=== PATIENT | female | born 1995 | race American Indian/Alaskan Native ===

== ENCOUNTER 2017-04-27 09:37 | Emergency (ER) | payer OTHER ==
[~2017-04-27] VITALS: Ht 167.6 cm; Wt 59.0 kg
[~2017-04-27 09:37] MED LIST: CLINDAMYCIN HC300 MG PO; DEPO-PROVE150 MG/1 M IM; ESTRADIOL2 MG PO; NORCO 5-325 TA1 EACH PO; ZOFRAN ODT4 MG PO
[2017-04-27] MEDS ORDERED: CLEOCIN HCL300 MG PO (12:19)
== END 2017-04-27 13:24 | disposition home or self-care (01) ==
LOC: ED 09:37
DX: L03.113 Cellulitis of right upper limb (principal); Z86.14 Personal history of Methicillin resistant Staphylococcus aureus infection; F17.200 Nicotine dependence, unspecified, uncomplicated; Z88.0 Allergy status to penicillin; Z88.1 Allergy status to other antibiotic agents
CPT/HCPCS: 80053; 83605; 84703; 85025; 87040; 96365; 96375; 99283; J1885

== ENCOUNTER 2017-12-13 13:25 | Emergency (ER) | payer OTHER ==
[~2017-12-13] VITALS: Ht 167.6 cm; Wt 59.0 kg
[~2017-12-13 13:25] MED LIST changes: +CLEOCIN HCL300 MG PO
== END 2017-12-13 13:38 | disposition home or self-care (01) ==
LOC: ED 13:25
DX: S40.262A Insect bite (nonvenomous) of left shoulder, initial encounter (principal); W57.XXXA Bitten or stung by nonvenomous insect and other nonvenomous arthropods, initial encounter

== ENCOUNTER 2018-01-28 20:34 | Inpatient (IN) | payer OTHER ==
[~2018-01-28] VITALS: Ht 167.6 cm; Wt 56.2 kg
--- NOTE | 2018-01-28 23:32 | NUR ---
pt admitted from ed to room 125 via stretcher
--- NOTE | 2018-01-29 00:10 | NUR ---
report received from JONATHON Pabon. rt in with pt administering nebulized treatment. call light in reach. Pt speaks full sentances and no needs voiced at this time.
--- NOTE | 2018-01-29 01:27 | NUR ---
PATIENT GOT UP TO THE BATHROOM AND VOIDED 900MLS. PATIENT BACK IN BED NOW AND WANTING TO GET SOMETHING TO HELP HER SLEEP. I WILL PASS THIS ON TO HER NURSE. CALL LIGHT IN REACH.
--- NOTE | 2018-01-29 02:58 | NUR ---
pt resting in bed watching tv states "Is there something you can give me to help me sleep?" pt reports 4/10 upper back pain that she states is chronic for her "it's because of my scoliosis". Pt states she feels pain is keeping her awake. prn 500mg tylenol adminsitered at this time. call light in reach and pt given fresh ice water also within reach.
--- NOTE | 2018-01-29 06:20 | NUR ---
PT UP TO RESTROOM ONLY STAND BY ASSIST. PT SATTING 100% ON 2LPNC SO O2 TITRATED OFF. PT MAINTAINS ROOM AIR O2 SAT OF 97% AND DENIES SOB. LUNG SOUNDS ARE MUCH IMPROVED FROM INTITIAL ASSESSMENT. SOME SCATTERED WHEEZING NOTED ON EXHALATION AND DIMINISHED TO LOWER LEFT LUNG FIELD. CALL LIGHT WITHIN REACH AND PT DENIES HAVING ANY CONCERNS OR REQUESTS.
--- NOTE | 2018-01-29 08:20 | NUR ---
MORNING ASSESSMENT AND MEDICATIONS DUE. THIS RN TO BEDSIDE. RT AT BEDSIDE GIVING BREATING TREATMENT. PT CONTINUES TO REPORT 5/10 PAIN IN HER BACK AND STATES "IT MIGHT HELP IF I GET UP." PT ASSISTED WITH REPOSITIONING. PT ASSISTED WITH ORDERING BREAKFAST. ASSESSMENT DONE. MEDICATIONS GIVEN. BREATHING TREATMENT DONE. PT EDUCATION REGARDING SPUTUM COLLECTION DONE. PT VERBALIZES UNDERSTANDING. BED RAILS UP. CALL LIGHT WITHIN REACH.
--- NOTE | 2018-01-29 08:30 | NUR ---
PATIENT RESTING IN BED, EYES CLOSED. RN IN ROOM. AM CARE SET UP FOR PATIENT. PATIENT CALL LIGHT IN REACH. NO OTHER NEEDS AT THIS TIME.
--- NOTE | 2018-01-29 08:36 | NUR ---
PATIENT SITTING UP IN BED, EATING BREAKFAST. PATIENT STATED HER MOM WAS BRINGING HER CLEAN CLOTHES LATER AND SHE MAY WANT TO SHOWER THEN. CALL LIGHT IN REACH. NO OTHER NEEDS AT THIS TIME.
--- NOTE | 2018-01-29 10:34 | NUR ---
THIS RN TO CHECK ON PT. PT STATES SHE HAS STILL BEEN UNABLE TO COUGH ANYTHING UP. PT VISITING WITH FAMILY. NO REQUESTS OR COMPLAINTS. CALL LIGHT WITHIN REACH. BED RAILS UP. O2 SATURATION REMAINS 96% ON ROOM AIR.
--- NOTE | 2018-01-29 11:37 | NUR ---
FOCUSSED ASSESSMENT DUE. THIS RN TO BEDSIDE. PT FINSIHING WITH RT TX. PT REPORTS BREATHING "BETTER." CONTINUES TO REPORT 5/10 BACK PAIN. FOCUSSED ASSESSMENT DONE. PT EATING LUNCH AND PLAYING ON PHONE. GRANDFATHER AT BEDSIDE.
--- NOTE | 2018-01-29 12:27 | NUR ---
PT STATES SHE IS READY FOR SHOWER. PIV SALINE LOCKED, ALCOHOL CAPS APPLIED. PIV COVERED FOR SHOWER. SUPPLIES PROVIDED FOR PT. PT ASSISTED INTO RESTROOM. PT INDEPENDANT AND STEADY ON FEET. PT ENCOUARGED TO SIT FOR SHOWER. MOTHER HELPING PT. PT DEMONSTRATES USE OF SHOWER CALL LIGHT.
--- NOTE | 2018-01-29 14:23 | NUR ---
PATIENT RESTING IN BED, VISITING WITH FAMILY. RN AND DOCTOR IN ROOM. CALL LIGHT IN REACH. NO OTHER NEEDS AT THIS TIME.
--- NOTE | 2018-01-29 14:33 | NUR ---
PT REPORTS PAIN AT IV SITE. PT YEPS WITH PAIN WHEN PIV IS FLUSHED. PT STATES "I'D RATHER HAVE MORE NEEDLE POKES THEN THIS HURTING IV." PIV FLUSHES WELL. NO REDNESS NOTED. PIV DC'D PER PROTOCOL. NEW PIV ATTEMPTED X1 BY THIS RN. CHARGE NURSE CALLED DUE TO LIMITED PIV SITES. CHARGE NURSE WILL ATTEMPT PIV. RT TO BEDSIDE FOR PRN BREATHING TX. RT TO BEDSIDE. BREATHINGTX GIVEN.
--- NOTE | 2018-01-29 14:59 | NUR ---
PT VERBALIZED THAT SHE USES HEROINE IN HER VEINS, LAST USED TWO DAYS AGO.
--- NOTE | 2018-01-29 16:11 | NUR ---
AFTERNOON ASSESSMENT DUE. THIS RN TO BEDSIDE. PT REPORTS HEADACHE 5/10 THAT IS "TOLERABLE BUT ANNOYING." PT ENCORUAGED TO GET UP TO CHAIR. PT ASSISTED UP TO CHAIR. ASSESSMENT DONE. CONGESTION AND STUFFY NOSE NOTED. TISSUES PROVIDED. PT BLOWING NOSE AND SNEEZING. PIV CHARGED, PIV WAS STARTED WITH ULTRASOUND BY JONATHON TAVAREZ. PT STATES SHE HAS NO ADDITIONAL COMPLAINTS AT THIS TIME. CALL LIGHT WITHIN REACH.
--- NOTE | 2018-01-29 17:02 | NUR ---
PT HERE FOR SOB AND COUGHT. REGULAR DIET, SBA. PT SHOWERED TODAY. NEW PIV PLACED WITH ULTRASOUND. SPUTUM CULTUR TODAY. SMOKING CESATION EDUCATION TODAY. IV ABX. ENCOURAGE AMBULATION TOLERATED. PRN AND SCHEDULED NEBS. PT USING CALL LIGHT APPROPRIATLY.
--- NOTE | 2018-01-29 18:38 | NUR ---
PT NOTICED TO BE UP AND AMBULATING AROUND THE CARPIO. PT REPORTS "A LITTLE" SOB AND DENIES DIZZINESS.
--- NOTE | 2018-01-29 19:22 | NUR ---
PT IS AWAKE IN BED, SHE DENIES NEEDS AT THIS TIME. CALL LIGHT IS WITHIN REACH.
--- NOTE | 2018-01-29 21:02 | NUR ---
IN ROOM TO ASSESS PT AND ADMINISTER MEDICATIONS. SHE DENIES PAIN AT THIS TIME AND STATES SHE DOES NOT FEEL SOB SHE DID EARLIER IN THE DAY. SHE ALSO DENIES ANY LIGHTHEADEDNESS WHILE AMBULATING.
--- NOTE | 2018-01-29 22:33 | NUR ---
PT STATES SHE TAKES EQUATE BRAND OF NIGHT TIME SLEEP AID AND REQUESTED SOME. CALLED DR SAINI AND HE STATES HE WILL PLACE AN ORDER.
--- NOTE | 2018-01-29 23:01 | NUR ---
ADMINISTERED BENADRYL TO HELP PT SLEEP. SHE DENIES FURTHER NEEDS AT THIS TIME.
--- NOTE | 2018-01-30 00:50 | NUR ---
PT IS RESTING WITH EYES CLOSED, RESPIRATIONS ARE EVEN AND NONLABORED. CALL LIGHT IS WITHIN REACH.
--- NOTE | 2018-01-30 03:11 | NUR ---
PT IS RESTING WITH EYES CLOSED, RESPIRATIONS ARE EVEN AND NONLABORED. CALL LIGHT IS WITHIN REACH.
--- NOTE | 2018-01-30 04:08 | NUR ---
PT IS RESTING WITH EYES CLOSED, RESPIRATIONS ARE EVEN AND NONLABORED. CALL LIGHT IS WITHIN REACH.
--- NOTE | 2018-01-30 04:45 | NUR ---
PT REPORTS SOB HAS DECREASED. SHE TOLERATED RA THROUGH THE NIGHT. SPUTUM CULTURE IS PENDING. SHE IS AMBULATING INDEPENDENT IN THE ROOM/ SBA WHILE IV ABX INFUSING. SHE DENIES PAIN AND IS TOLERATING A REGULAR DIET. PT RECEIVES IV AZITHROMYCIN AND CEFTRIAXONE. BENADRYL WAS ADDED LAST NIGHT TO HELP HER SLEEP.
--- NOTE | 2018-01-30 05:42 | NUR ---
PT IS RESTING WITH EYES CLOSED, RESPIRATIONS ARE EVEN AND NONLABORED. CALL LIGHT IS WITHIN REACH.
--- NOTE | 2018-01-30 08:15 | NUR ---
PATIENT IN BED, VISITOR IN ROOM, STILL WORKING ON BREAKFAST. CALL LIGHT IN REACH
--- NOTE | 2018-01-30 08:40 | NUR ---
PATIENT SET UP FOR AM CARE, TEETH BRUSHED AND FACE WASHED. JONATHON DIALLO IN .
--- NOTE | 2018-01-30 08:41 | NUR ---
MORNING ASSESSMENT AND MEDICATION DUE. THIS RN TO BEDSIDE. PT REPORTS 11/30 "MUSCLE ACHES" ESPICIALLY WHEN COUGHING. PT STATES SHE FEELS MUCH BETTER TODAY. PT ENCOURAGED TO CONTINUE AMBULATING MUCH SHE CAN TOLERATE. ASSESSMENT DONE. INSPIRATORY AND EXPIRATORY WHEEZES NOTED THROUGHOUT. MEDICATION GIVEN. PT WATCHING TV. NO REQUESTS OR COMPALINTS AT THIS TIME. FRIEND AT BEDSIDE. BED RAILS UP. CALL LIGHT WITHIN REACH.
--- NOTE | 2018-01-30 10:25 | NUR ---
THIS RN TO ROOM TO CHECK ON PT. PT ENCOURAGED TO AMBULATE. PT UP TO WALK AROUND CARPIO. 1ST LAP DONE WITH THIS RN. PT DENIES SOB AND DIZZINESS. PT STATES "I JUST FEEL LIKE MY LUNGS HAVE OPENED UP." PT CONTINUES WALKING WITH FRIEND.
--- NOTE | 2018-01-30 11:03 | NUR ---
PATIENT UP IN BED, FAMILY IN ROOM. THIS BUSINESS EXECUTIVE EMTIED GARBAGE AND TIDIED ROOM. CALL LIGHT IN REACH
--- NOTE | 2018-01-30 12:31 | NUR ---
FOCUSSED ASSESSMENT DUE. THIS RN TO BEDSIDE. PT REPORTS 3/10 PAIN IN ABDOMEN AND BACK WITH COUGHING. PT STATES SHE WOULD LIKE TO GO HOME. PTS MOTHER EXPRESSES CONCERN STATING SHE IS NOT COMFORTABLE WITH PT GOING HOME AT THIS TIME BECAUSE SHE IS WORRIED PT WILL OVER DO IT AND BECAUSE PT "IS STILL COUGHING." PTS MOTHER WOULD LIKE TO KNOW THE RESULTS OF SPUTUM CULTURE. PT DECLINES NEED FOR BERG MEDICATION AT THIS TIME. PT DENIES SOB. FOCUSSED ASSESSMENT DONE. WHEEZES NOTED. FAMILY AT BEDSIDE. PT FINSHED WITH LUNCH. BED RAILS UP. CALL LIGHT WITHIN REACH.
--- NOTE | 2018-01-30 12:36 | NUR ---
PT DRESSED, LAYING IN BED. LOTS OF FAMILY IN . PT STATED SHE HOPES TO BE DC'D TODAY. SHE IS FEELING MUCH BETTER. EXTENDED A BLESSING,WILL CONTINUE TO FOLLOW NEEDED
--- NOTE | 2018-01-30 13:20 | NUR ---
PATIENT UP IN ROOM, FAMILY IN ROOM. RN YOEL AND PATIENTS MOTHER IN ROOM TO VISIT WITH PATIENT. VITALS AND I/OS CHARTED. CALL LIGHT IN REACH
--- NOTE | 2018-01-30 13:36 | NUR ---
PT AND MOTHER ARGUING ABOUT WEATHER OR NOT PT SHOULD GO HOME. THIS RN TO ROOM TO MEDIATE. PROS AND CONS DISCUSSED WITH PT AND MOTHER. PT AND MOTHER VERBALIZE UNDERSTANDING OF PROS AND CONS. PT STATES THAT SHE UNDERSTANDS RISKS AND BENIFITS OF LEAVING AT THIS TIME AND WOULD LIKE TO GO HOME. MD MADE AWARE. MEDICATION GIVEN ORDERED. PT TALKING ON PHONE. NO ADDITIONAL REQUESTS OR COMPLAINTS AT THIS TIME.
[2018-01-30] MEDS ORDERED: CEFPODOXIME PR200 MG PO (14:13)
[2018-01-30] MEDS ORDERED: COMBIVENT RESPIM4 GM INH (14:14)
[2018-01-30] MEDS ORDERED: PREDNISONE20 MG PO (14:15)
[2018-01-30] MEDS ORDERED: NICORETTE4 M2 BUCCAL (14:15)
--- NOTE | 2018-01-30 14:39 | NUR ---
PT READY FOR DISCHARGE AND ANXIOUS TO LEAVE. FAMILY HAS ARRIVED TO TAKE PT HOME. DISCHARGE INSTRUCTIONS REVIEWED WITH PT. PT VERBALIZES UNDERSTANDING OF INSTRUCTIONS AND STATES HER QUESTIONS HAVE BEEN ANSWERED. PHARMACIST TO BEDSIDE TO REVIEW INFORMATION WITH PT. ABX GIVEN BEFORE DISCHARGE PER MD REQUESTS. PT STATES SHE UNDERSTANDS ALL HER MEDICAITONS. PIV DC'D PER PROTOCOL. GAUZE AND COBAN APPLIED. VITALS TAKEN. PT WHEELED FROM CLINIC BY MALENA.
== END 2018-01-30 14:45 | disposition home or self-care (01) | DRG 193 ==
LOC: ED 20:34 → MS 23:22
PROVIDERS: ADMIT Internal Medicine
DX: J13 Pneumonia due to Streptococcus pneumoniae (principal); J96.01 Acute respiratory failure with hypoxia; F17.210 Nicotine dependence, cigarettes, uncomplicated; F19.11 Other psychoactive substance abuse, in remission; J98.01 Acute bronchospasm; E86.0 Dehydration; Z88.0 Allergy status to penicillin; Z79.3 Long term (current) use of hormonal contraceptives
CPT/HCPCS: 36415; 71046; 80048; 80053; 83735; 84484; 85025; 85379; 94640; 94668; 96361; 96374; 96375; 99285; 99406; J0456; J0696; J1650; J1885; J2930; J3475; J7030; J7050; J7120; J7512

== ENCOUNTER 2018-09-22 15:47 | Inpatient (IN) | payer OTHER ==
[~2018-09-22] VITALS: Ht 167.6 cm; Wt 60.3 kg
[~2018-09-22 15:47] MED LIST changes: +ALBUTEROL SUL HFA 90; +BACTRIM DS TAB1 EACH PO; +CEFPODOXIME PR200 MG PO; +COMBIVENT RESPIM4 GM INH; +DOXYCYCLINE HY100 MG PO; +NICORETTE4 M2 BUCCAL; +PREDNISONE20 MG PO; +SUBOXONE 8 MG-1 EAC1 SL
--- OUTSIDE RECORDS SUMMARY | 2018-09-22 15:50 | XMS ---
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 - 2 Visits in 30 Days CARE PROVIDERS There are no care providers on record at this time. Braulio has no Care Guidelines for this patient. Bernice VISIT COUNT (12 MO.) 4 [facility]. TOTAL 4 NOTE: Visits indicate total known visits. ED/UCC VISIT TRACKING (12 MO.) 09/22/2018 15:47 [facility] [place] TYPE: Emergency COMPLAINT: - RT ARM PAIN 09/22/2018 01:07 [facility] [place] TYPE: Emergency COMPLAINT: - SPIDER BITE, POSS ABSCESS 01/28/2018 20:34 [facility] [place] TYPE: Emergency COMPLAINT: - CHEST PAIN 12/13/2017 13:26 [facility] [place] TYPE: Emergency COMPLAINT: - POSS BUG BITE DIAGNOSES: - Bitten or stung by nonvenomous insect and other nonvenomous arthropods, initial encounter - Insect bite (nonvenomous) of left shoulder, initial encounter INPATIENT VISIT TRACKING (12 MO.) 01/28/2018 23:[address] [facility] [place] TYPE: Medical Surgical COMPLAINT: - BRONCHITIS AND BRONCHOSPASM DIAGNOSES: - Nicotine dependence, cigarettes, uncomplicated - Other psychoactive substance abuse, in remission - Acute bronchospasm - Acute respiratory failure with hypoxia - retirement (current) use of hormonal contraceptives - Dehydration - Pneumonia, unspecified organism - Pneumonia due to Streptococcus pneumoniae - Allergy status to penicillin [email or web address]
--- NOTE | 2018-09-22 20:10 | NUR ---
PT ARRIVED TO FLOOR VIA STRETCHER. PT ABLE TO SCOOT HERSELF TO HOSPITAL BED. PT ADMISSION COMPLETED. PT RATING PAIN TO L ARM 7/10, DESCRIBES A THROBBING PAIN GENERALIZED TO LUE. L ARM WITH GENERALIZED REDNESS AND EDEMA, NON-PITTING. GAUZE PRESENT OVER I&D SIDE WITH MODERATE AMOUNT OF RED DRAINAGE PRESENT. PT REQUESTS PRN FOR PAIN. TO BE ADMINISTERED ORDERED. PT ORIENTED TO ROOM. DENIES FURTHER NEEDS AT THIS TIME. PT DECLINES PERSONAL ITEMS TO BE PLACED AT BEDSIDE. CALL LIGHT INREACH. PT EDCUATED REGARDING CALL LIGHT USE.
--- NOTE | 2018-09-22 22:22 | NUR ---
PT RESTING IN BED WITH EYES CLOSED. WAKES EASILY WHEN WORKERS COMPENSATION COORDINATOR ENTERS THE ROOM. PT RATING PAIN 5/10. STATES THAT ARM CONTINUES TO "THROB". PRN TORADOL ADMINISTERED. BENADRYL ADMINISTERED PER PT REQUEST. TDAP SHOT ADMINISTERED. PT TOLERATED WELL. PT DENIES FURTHER NEEDS. CALL LIGHT IN REACH.
--- NOTE | 2018-09-22 23:29 | NUR ---
PT UTILIZES CALL LIGHT, REQUESTS NEW WARM COMPRESS, PROVIDED. PT RATING PAIN 4/10 TO L ARM. PT DENIES FURTHER NEEDS AT THIS TIME. CALL LIGHT IN REACH.
--- NOTE | 2018-09-23 02:18 | NUR ---
PT RESTING IN BED AWAKE. STATES THAT SHE HAS SLEPT OFF AND ON. PT STATES THAT THROBBING IS RETURNING TO L ARM, RATES PAIN 5/10, REQUESTS PRN PAIN MEDICATINO. PT ASSESSMENT COMPLETE. PT DENIES NAUSEA OR SOB. PT REPORTS OCCASIONAL COUGH. INSPIRATORY WHEEZE NOTED TO ALL LUNG BEJARANO. L ARM CONTINUES TO HAVE GENERALIZED REDNESS PRESENT. L FORARM WITH 1 +PITTING, L HAND WITH NON PITTING EDEMA. I & D SITE COVERED WITH GAUZE, SATURATED WITH MODERATE AMOUNT OF RED DRAINAGE THAT HAS RAN DOWN PT'S ARM AND ONTO CHUX PADS. GAUZE DRESSING CHANGED AT THIS TIME. PACKING REMAINS IN PLACE. PT TOLERATED WELL. INCREASE IN PAIN WITH TOUCH TO L ARM. PT DENIES FURTHER NEEDS AT THIS TIME. CALL LIGHT WITHIN REACH.
--- NOTE | 2018-09-23 06:13 | NUR ---
PT RESTING IN BED AWAKE. PT ASSESSMENT COMPLETE. PT RATES PAIN 4/10, STATES THAT ARM IS BEGINNING TO THROB AGAIN. PRNT ORADOL ADMINISTERED. PT DENIES ANY NAUSEA OR SOB. PT CONTINUES TO HAVE INSPIRATORY WHEEZES TO ALL LUNG BEJARANO. PT REPORTS OCCASIONAL COUGH. L ARM CONTINUES TO HAVE PITTING 1+EDEMA, L HAND WITH NON PITTING EDEMA. DRESSING, GAUZE AND TAPE TO L I & D SITE WITH MODERATE AMOUNT OF SHADOING AT THIS TIME. CMS TO L HAND INTACT. PT AMBULATES TO BATHROOM AND BACK TO BED WITH SBA, TOLERATED WELL. PT DENIES FURTHER NEEDS AT THIS TIME. CALL LIGHT WITHIN [facility].
--- NOTE | 2018-09-23 07:20 | NUR ---
REPORT RECEIVED FROM STAFF ELECTRICAL ENGINEER RN. PT IN BED, LAB IN ROOM. PT REQUESTING APPLE JUICE. NO OTHER NEEDS. CALL LIGHT IN REACH
--- NOTE | 2018-09-23 07:45 | NUR ---
DR WEBSTER NOTIFIED THAT LAB WAS UNABLE TO DRAW LABS. ORDER TO HOLD LABS AT THIS TIME.
--- NOTE | 2018-09-23 08:16 | NUR ---
BLOOD DRAWN FROM 18G IV IN RIGHT UPPER ARM. 5ML BLOOD WAISTED. SENT TO LAB. FLUIDS RESTARTED.
--- NOTE | 2018-09-23 12:59 | NUR ---
DRESSING CHANGE TO LEFT I AND D SITE. PT PREMEDICATED WITH 10/325 MG NORCO. PACKING IN WOUND REMOVED, MODERATE AMOUNT OF WHITE/YELLOW DRAINAGE PRESENT. FOUL ORDER ALSO PRESENT. WOUND CLENSED WITH NORMAL SALINE. PACKING REPLACED IN WOUND. GAUZE AND ABD PLACED OVER TOP, 4.5 INCH GAUZE ROLL WRAPPED AROUND. PT REPORTED SOME PAIN WITH DRESSING CHANGE. PT ABLE TO TOLERATE.
--- NOTE | 2018-09-23 14:44 | NUR ---
PHONE CALL RECEIVED FROM JOB HAND REGARDING THIS PATIENT'S VENOUS ACCESS. EMR IS REVIEWED AND PATIENT IS INTERVIEWED. PATIENT REPORTS A ULTRASOUND GUIDED PIV ON THE MEDIAL ASPECT OF HER RIGHT ARM PRIOR, WHICH IS SAID TO HAVE INFILTRATED. INFECTION IS NOTED TO HER LEFT ARM. IT IS NOTED PATIENT HAS A HISTORY OF IVDA. SITE RITE ULTRASOUND IS USED TO VISUALIZE THE IV IN THE CEPHALIC VEIN AND IT DOES APPEAR IN THE VEIN. NO CLOTS ARE GROSSLY NOTED. LINE IS FLUSHED W/10 ML NS AND PATIENT REPORTS PAIN "AT FIRST" AND STATES IT SUBSIDES. NO BLOOD RETURN IS NOTED FROM THE LINE. PATIENT REPORTS ATTEMPTS WERE MADE FOR ACCESS IN HER FEET. FLAGYL IS STARTED AND AFTER ABOUT 10 MINUTES, THE PATIENT REPORTS PAIN IN HER RIGHT SHOULDER. PUMP IS TURNED OFF AND DR. WEBSTER IS NOTIFIED OF NECESSITY FOR CENTRAL LINE PLACEMENT.
--- NOTE | 2018-09-23 16:00 | NUR ---
ASSISTED DR GREENBERG IN PLACING 3 LUMEN CENTRAL LINE. PT TOLERATED WELL. X RAY IN TO CONFIRM PLACEMENT.
--- NOTE | 2018-09-23 17:44 | NUR ---
PT REPORTING 5/10 PAIN IN RIGHT ARM A TRHROBBING AND TINGLING. CMS IN FINGERS INTACT. 2 TABS OF 10/325 MG NORCO ADMINSITERED. HEATING PACK APPLIED TO LEFT ARM. CALL LIGHT IN REACH. DINNER AT BEDSIDE.
--- NOTE | 2018-09-23 20:56 | NUR ---
PRIMARY NURSE NOTIFIED RE PAIN MED PATIENT REQUESTED. ICE WATER, APPLE JUICE AND HEAT PACK GIVEN.
--- NOTE | 2018-09-23 21:30 | NUR ---
PT ASSESSMENT COMPLETE. PT RATES PAIN 6/10, PRN TORADOL ADMINISTERED. PT DENIES NAUSEA OR SOB. LUNG SOUNDS WITH INSPIRATORY WHEEZE THROUGHOUT. PT REPORTS OCCASION PRODUCTIVE COUGH. L ARM ELEVATED ON PILLOWS. DRESSING C/D/I. REDNESS PRESENT TO L HAND AND ARM. GENERALIZED EDEMA TO L HAND. 1+PITTING EDEMA TO L ARM. PT UP TO BATHROOM INDEPENDENTLY, TOLERATED WELL. PT DENIES FURTHER NEEDS AT THIS TIME. CALL LIGHT IN REACH.
--- NOTE | 2018-09-23 22:35 | NUR ---
PT REQUESTING BENADRYL FOR SLEEP AND PRN NORCO FOR 4/10 PAIN. PT DENIES FURTHER NEEDS AT THIS TIME. CALL LIGHT IN REACH.
--- NOTE | 2018-09-24 00:56 | NUR ---
PT RESTING IN BED WITH EYES CLOSED. RESPIRATIONS EVEN AND UNLABORED. PT APPEARS TO BE SLEEPING, DOES NOT WAKE WHILE GUNITE MIXER IN DOORWAY. CALL LIGHT IN REACH.
--- NOTE | 2018-09-24 02:32 | NUR ---
PT IV PUMP ALARMING. PT RESTING IN BED AWAKE WHEN PIPE WRAPPING MACHINE OPERATOR ENTERS. PT GROGGY. REPORTS THAT PAIN IS WELL CONTROLLED, RATES 3/10. PT DENIES NEEDS THIS TIME. CALL LIGHT IN REACH.
--- NOTE | 2018-09-24 06:33 | NUR ---
PT ASSESSMENT COMPLETE. PT RATING PAIN 6/10, PRN NORCO ADMINISTERED. PT WITH CONTINUING OCCASIONAL COUGH AND INSPIRATORY WHEEZE. PT DENIES SOB. DENIES NAUSEA. REDNESS TO HAND, EDEMA 1+ TO FOREARM AND NON PITTING EDEA TO L HAND CONTINUE. DRESSING D/I. SMALL AMOUNT OF RED/YELLOW DRAINAGE CAN BE SEEN FROM DRESSING EDGE. PT STATES DRESSING ITCHES SOME. EDUCATION PROVIDED REGARDING DAILY DRESSING CHANGE. UNDERSTANDING STATED. BLOOD OBTAINED FROM CENTRAL LINE. HEP LOCKED PORT AFTER BLOOD DRAW. PT TOLERATED WELL. EDUCATION PROVIDED REGARING IV CARE. PT STATES UNDERSTANDING. PT DENIES OTHER NEEDS AT THIS TIME. CALL LIGHT IN REACH.
--- NOTE | 2018-09-24 07:57 | NUR ---
RECIEVED CRITICAL LAB VALUE FOR HEMOGLOBIN OF 9.6 AND HEMOTCRIT OF 19.8 FROM [facility] AT 0752. RESULTS CALLED TO DR WEBSTER AT 0753.
--- NOTE | 2018-09-24 08:30 | NUR ---
PT SITTING UP IN BED. LEFT ARM ELEVATED ON PILLOW WITH HAND RESTING UP IN THE AIR ABOVE LEVEL OF THE HEART. HAND AND FOREARM NOTABLY EDEMATOUS, NON-PITTING. PT REPORTS THAT THE SWELLING IS MUCH IMPROVED. LEFT HAND AND AND FOREARM EVER SO SLIGHTLY PINK AND WARM, AGAIN PT REPORTS IMPROVEMENT. DRESSING TO LEFT FOREARM CDI. CENTRAL LINE RUNNING MAINTENENCE FLUIDS WNL, ALL LUMENS PULL BACK BLOOD, FLUSH EASILY. UNUSED PORTS HEP FLUSHED AND NEW ANTIBACTERIAL ORANGE CAPS APPLIED. PT ALERT AND ORIENTED. REPORTS LEFT ARM PAIN 5/10, PT AGREEABLE TO ADMINISTRATION OF TORADOL. PT INDEPENDENT IN ROOM. EATING BREAKFAST, DENIES NAUSEA. CALL LIGHT WITHIN REACH.
--- NOTE | 2018-09-24 09:17 | NUR ---
LAB REDRAWN FROM CENTRAL LINE TO VERIFY ABNORMAL RESULTS. DR. WEBSTER NOTIFIED OF NEW RESULTS, NO NEW ORDERS AT THIS TIME.
[2018-09-24] MEDS ORDERED: VENTOLIN HFA18 GM INH (09:21)
--- NOTE | 2018-09-24 09:24 | NUR ---
PT NOTED TO HAVE CONSIDERABLE INSPIRATORY WHEEZES WITH OCCASIONAL NON PRODUCTIVE COUGH. GAVE PT I.S., PROVIDED EDUCATION AND ENCOURAGE USE. PT VERBALIZED UNDERSTANDING.
--- NOTE | 2018-09-24 09:45 | NUR ---
SPOKE WITH PATIENT IN ROOM. PATIENT STATES SHE LIVES WITH HER MOM WHO HAS SOME HEALTH ISSUES, ALSO. BUT THAT SHE HAS GRANDPARENTS CLOSE BY AND OTHER FAMILY. SHE DOES NOT DRIVE, BUT HAS TRANSPORTATION THROUGH FAMILY TO APPOINTMENTS. SHE STATES SHE HAS A 3 YEAR-OLD DAUGHTER WHO IS STAYING WITH HER BIOLOGICAL DAD. SHE STATES SHE IS CURRENTLY UNEMPLOYED. WE DISCUSSED DIAGNOSIS, PATIENT IS WELL INFORMED ON THIS AND THAT SHE NEEDS TO STAY UNTIL CULTURES ARE BACK TO MAKE SURE SHE IS ON CORRECT ANTIBIOTICS. SHE STATES, "I AM OK STAYING IF IT MEANS I GET WHAT I NEED". WE DICUSSED HER WISHES ON PLAN, SHE WANTS TO RETURN TO HER HOME AT DISCHARGE. WE DISCUSSED SHE NEEDS TO MAKE SURE SHE UNDERSTANDS ALL NEEDS TO TAKE CARE OF HER HEALTH AFTER DISCHARGE. WE DISCUSSED SHE NEEDS TO UNDERSTAND ALL MEDS, WHY SHE IS TO TAKE THEM AND SIDE EFFECTS. SHE STATES UNDERSTANDING OF THIS. WE DISCUSSED WHAT SUPPORT AND WHO TO CALL AFTER DISCHARGE. PATIENT FEELS ABLE TO ASK QUESTIONS OF STAFF, SHE STATES SHE FEELS SAFE AT HOME AND UNDERSTANDS SHE WILL BE FOLLOWING UP WITH PCP ALSO. NO FURTHER QUESTIONS AT THIS TIME.
--- NOTE | 2018-09-24 11:16 | NUR ---
PT REQUESTED TO SHOWER TODAY, DR. DARIN ÁLVAREZ'Christa. PT STATES SHE WILL CALL WHEN SHE IS READY.
--- NOTE | 2018-09-24 11:37 | OR ---
[facility] [address], [place] [address] Signed DATE OF OPERATION: 09/23/2018 SURGEON: Rina Greenberg MD PREOPERATIVE DIAGNOSES: 1. Lack of peripheral IV access. 2. Left forearm abscess. 3. History of methicillin-resistant Staph aureus. POSTOPERATIVE DIAGNOSES: 1. Lack of peripheral IV access. 2. Left forearm abscess. 3. History of methicillin-resistant Staph aureus. PROCEDURES PERFORMED: 1. Placement of left internal jugular triple-lumen catheter. 2. Physician-directed ultrasound. ESTIMATED BLOOD LOSS: Minimal. INDICATIONS: Cynthia is a 23-year-old young lady, who unfortunately has a history of IV drug abuse. She has also had previous infections involving methicillin-resistant Staph aureus. More recently, she developed an infection on her left forearm and had been initially I and D'd in our emergency room. The p.o. antibiotics were not enough and so she had come back to the emergency room. She has been admitted to the Internal Medicine Service. She has a very difficult peripheral IV access. In fact, we our nurse had used the ultrasound to place an IV. They were going to place a PICC line and they had not had any success. Consequently, I was asked as a general surgeon on-call to come and place a central venous catheter for Cynthia at least for a day or two until she can get ahead of the infection until the final cultures come back. I met with Cynthia in her room and I talked with her nurse present. We discussed the nature of a central venous catheter. She understands there is risk including, but not limited to bleeding, infection, scarring, change in contour of the skin, pneumothorax requiring chest tube placement, as well as catheter embolization requiring retrieval. She had expressed understanding and wished to proceed. PROCEDURE NOTE: Cynthia was placed in the supine Trendelenburg position on her bed. Her entire neck and Electronically Signed By: RINA GREENBERG MD 09/24/18 3038 PATIENT NAME: CYNTHIA WRIGHT OPERATIVE REPORT DATE OF : [birth year] REPORT #: [id number] PHYSICIAN: RNIA GREENBERG MD PCP: JUAN DUARTE REPORT IS CONFIDENTIAL AND NOT TO BE RELEASED WITHOUT AUTHORIZATION [facility] [address], [place] [address] Signed left chest wall were prepped and draped in the usual sterile fashion. We approached the subclavian vein first. Local anesthetic was injected in the skin underneath the clavicle. We passed our needle in twice and we were not able to locate the vein. We hit the artery once or held pressure for a little over 5 minutes. In the meantime, we retrieved our ultrasound unit from our operating room and we brought that in to [facility]'s hospital room. We then used our ultrasound unit to find the internal jugular vein on the left. Local anesthetic was injected into her neck and we were able to pass the needle under direct visualization into the internal jugular vein on the 1st pass. The wire was able to feed without any resistance whatsoever. We dilated track without any resistance whatsoever. The catheter was inserted up to 15 cm at the neck and all three ports were able to draw and flush quite readily. After this, the catheter was held in place on the neck with interrupted silk sutures. Dry plastic occlusive dressing was applied. Cynthia tolerated the procedure quite nicely. Our chest x-ray was completed and to my read, it is in good position with no complications including pneumothorax. MD BRIJESH Kemp/MODL /[id number] cc: Rina Greenberg MD [facility] Copies: RINA GREENBERG MD ~ Electronically Signed By: RINA GREENBERG MD 09/24/18 1137 PATIENT NAME: CYNTHIA WRIGHT OPERATIVE REPORT DATE OF : [birth year] REPORT #: [id number] PHYSICIAN: RINA GREENBERG MD PCP: JUAN DUARTE REPORT IS CONFIDENTIAL AND NOT TO BE RELEASED WITHOUT AUTHORIZATION
--- NOTE | 2018-09-24 12:00 | NUR ---
PT REPORTS 5/10 LEFT ARM PAIN IN ADDITION TO INCREASE IN "THROBBING". MEDICATED WITH PRN NORCO. DENIES FURTHER NEEDS OR CONCERNS. INDEPENDENT IN ROOM. CALL LIGHT WITHIN REACH.
[2018-09-24] MEDS ORDERED: PREDNISONE20 MG PO (13:57)
--- NOTE | 2018-09-24 14:42 | NUR ---
PT RESTING IN BED, HOT PACK ON L ARM AND ELEVATED ON PILLOW. PT SEEMS PLEASANT AND FELT CONDITION IMPROVING, HOWEVER HER HAND WAS STILL SWOLLEN. EXTENDED BLESSING, ENCOURGED PT TO KEEP ARM ELEVATED. WILL FOLLOW NEEDED
--- NOTE | 2018-09-24 14:44 | NUR ---
PATIENT IN BED WATCHING TV. FRESH WATER GIVEN. CALL LIGHT IN REACH. NO FURTHER NEEDS AT THIS TIME.
--- NOTE | 2018-09-24 14:59 | NUR ---
PT RESTING IN BED, EYES CLOSED, RESP EVEN AND UNLABORED. CALL LIGHT WITHIN REACH.
--- NOTE | 2018-09-24 17:17 | NUR ---
PT PREMEDICATED WITH PRN NORCO, 2 TABS GIVEN. LEFT ARM DRESSING CHANGE COMPLETED. COPIUS AMOUNT OF PURULENT DRAINAGE NOTED ON OLD DRESSING AND OOZING FROM SITE ONCE PACKING REMOVED. MORE DRAINAGE GENTLY EXPRESSED FROM SITE. RINSED WITH STERILE SALINE. WOUND REPACKED WITH IODOFORM GAUZE, COVERED WITH 4X4 GAUZE, ABD PAD, KERLEX WRAP AND COBAN. PT VERY PAINFUL AND TEARFUL DURING PROCEDURE. DR. WEBSTER OBSERVED WOUND PRIOR TO NEW DRESSING APPLICATION. PT MEDICATED WITH IV TORADOL AFTER PROCEDURE, RATING PAIN 7/10. PT REPORTS THAT LEFT ARM AND WOUND OVERALL LOOK MUCH IMPROVED. ONLY SMALL AMOUNT OF REDNESS, WARMTH, AND INFLAMMATION NOTED. CALL LIGHT WITHIN REACH
--- NOTE | 2018-09-24 18:36 | NUR ---
PATIENT IN BED WATCHING TV. CALL LIGHT IN REACH. NO FURTHER NEEDS AT THIS TIME.
--- NOTE | 2018-09-24 19:15 | NUR ---
BEDSIDE REPORT RECEIVED FROM OFFGOING RN. PT RESTING IN BED. DENIES NEEDS AT THIS TIME.
--- NOTE | 2018-09-24 20:17 | NUR ---
PT ASSESSMENT COMPLETE. PT RATES PAIN 6/10, PRN NORCO ADMINISTERED. PT DENIES ANUSEA OR SOB. PT DEMONSTRATES APPROPRIATE IS USE. INSPIRATORY WHEEZE NOTED TO BILATERAL LOWER LUNG LOBES. PT WITH OCCASIONAL COUGH. L ARM CONTINUES TO HAVE GENERALIZED REDNESS, EDEMA PRESENT TO L HAND; NONPITTING. EDEMA TO L FOREARM 1+ PITTING. DRESSING C/D/I. CMS INTACT. PT REPORTS TINGLING TO L ARM. PT UP TO USE THE BATHROOM INDEPENDENTLY. EDUCATION PROVIDED REGARDING IS USE, POC, WOUND CULTURES. PT STATES UNDERSTANDING. PT DENIES FURTHER NEEDS AT THIS TIME. CALL LIGHT IN REACH.
--- NOTE | 2018-09-25 00:07 | NUR ---
PT RSETING IN BED WITH EYES CLOSED. RESPIRATIONS EVEN AND UNLABORED. PT APPEARS TO BE SLEEPING. PT DOES NOT WAKE WHILE ECOTHERAPIST IN DOORWAY. CALL LIGHT IN REACH.
--- NOTE | 2018-09-25 00:48 | NUR ---
PATIENT ASKED FOR WARM BLANKET X2.
--- NOTE | 2018-09-25 02:59 | NUR ---
PT ASSESSMENT COMPLETE. PT REPORTING PAIN 4/10 TO L FOREARM. PT DENIES NASUEA OR SOB. LUNG SOUNDS WITH RHONCI AND INSPIRATORY WHEEZE THROUGHOUT. RHONCI CLEAR WITH COUGH. PT REPORTS SMALL AMOUNT OF MUCOUS PRODUCTION, STATES THAT IT HAS BEEN GREEN IN COLOR. L FOREARM WITH CONTINUED REDNESS/EDEMA UNCHANGED FROM PREVIOUS ASSESSMENT. DRESSING REMAINS C/D/I. PT REQUESTS NEW WARM COMPRESS, PROVIDED. PT DENIES FURTHER NEEDS CALL LIGHT IN REACH.
--- NOTE | 2018-09-25 08:30 | NUR ---
PT SITTING UP IN BED AWAKE EATING BREAKFAST, LV WELL. DENIES NAUSEA. RATES PAIN 4/10 AT THIS TIME, DENIES NEED FOR PAIN MEDICATION CURRENTLY. LEFT ARM DRESSING CDI. CENTRAL LINE DRESSING CDI, ALL PORTS FLUSH EASILY WITH GOOD BLOOD RETURN. PT INDEPENDENT IN ROOM. CALL LIGHT WITHIN REACH.
--- NOTE | 2018-09-25 12:30 | NUR ---
PT RATING LEFT ARM PAIN 5/10. PT AGREEABLE TO TAKE ONLY 1 TAB OF NORCO. MEDICATED AT THIS TIME. SITTING UP EATING LUNCH VISITING WITH FAMILY. CALL LIGHT WITHIN REACH.
--- NOTE | 2018-09-25 13:19 | NUR ---
PATIENT UP TO SHOWER AND BACK TO BED, INDVashti CROUCHNED. NEW GOWN PROVIDED. CALL LIGHT IN REACH. NO FURTHER NEEDS AT THIS TIME.
--- NOTE | 2018-09-25 14:08 | NUR ---
PT SITTING UP IN BED, LEFT ARM ELEVATED WATCHING TV. PT STATED SHE IS FEELING BETTER, AND EDEMA IN L ARM AND HAND IS REDUCED. PT FEELS SHE IS MORE PREPARED TO BE DC'D TODAY IF IT HAPPENS. SLEPT BETTER LAST NIGHT. EXTENDED A BLESSING, WILL FOLLOW NEEDED
--- NOTE | 2018-09-25 15:04 | NUR ---
PT SITTING UP IN BED WATCHING TV. PT TOOK SHOWER A COUPLE HOURS AGO AND STATES IT MADE HER FEEL MUCH BETTER. LEFT ARM ELEVATED ON PILLOW, EDEMA AND REDNESS CONT TO IMPROVE. PT DENIES NEEDS OR CONCERNS AT THIS TIME. CALL LIGHT WITHIN REACH.
--- NOTE | 2018-09-25 17:25 | NUR ---
PT IN BED SLEEPING SOUNDLY, RESP EVEN AND UNLABORED.
--- NOTE | 2018-09-25 19:35 | NUR ---
DRESSING UNABLE TO BE CHANGED THIS SHIFT. [facility] NIGHTSHIFT NURSE NOTIFIED.
--- NOTE | 2018-09-25 20:43 | NUR ---
PATIENT JUST GIVEN 2 NORCO FOR 6/10 LFA PAIN BEFORE DRESSING CHANGE.
--- NOTE | 2018-09-25 22:05 | NUR ---
JUST CHANGED PATIENT'S LEFT FOREARM DRESSING. PURULENT DRESSING STILL DRAINGING FROM WOUND. NEW IODAFORM PACKING PLACED, 4X4'S PLACED OVER THAT, THEN ABD, THEN KERLIX, AND FINISHED WRAPPING IT WITH COBAN. PATIENT'S PAIN CONTINUES TO BE 5/10 AND TOLERATED THE PROCEDURE BEST COULD BE EXPECTED. 30MG IV TORADOL GIVEN, AND EVENING MEDS HAVE BEEN PASSED. PATIENT HAD AN ORAL TEMP OF 101.5F, BUT AFTER SHE WAS GIVEN NORCO ORAL TEMP IS NOW DROPPING AND IS AT 100.0F ORAL. MD NOT NOTIFIED.PATIENT GOING TO TRY AND GO TO SLEEP , BUT IS WATCHING TV AT THIS TIME.
--- NOTE | 2018-09-25 23:02 | NUR ---
PRIMARY NURSE NOTIFIED RE TEMP.
--- NOTE | 2018-09-25 23:06 | NUR ---
PATIENT STILL RESTING AND WATCHING TV.
--- NOTE | 2018-09-25 23:18 | NUR ---
CALLED TO LET HIM KNOW PATIENT'S INITIAL ORAL TEMP WAS 101.5, BUT AFTER 2 NORCO TEMP DECREASED TO 100.0F AND THAT THIS NURSE WAS MONITORING IT DR. MCCLELLAND VERBALIZED UNDERSTANDING AND NO NEW ORDERS GIVEN.
--- NOTE | 2018-09-26 00:45 | NUR ---
PATIENT IS RESTING ON HER LEFT SIDE AND HER EYES ARE CLOSE WITH RESPIRATIONS OF 16. CALL LIGHT IN REACH.
--- NOTE | 2018-09-26 02:09 | NUR ---
PATIENT'S 2AM VANCO WAS HUNG. PATIENT RESTING QUIETLY OM HER LEFT SIDE, NO S/S OF DISTRESS. EYES ARE CLOSED AND RESPIRATIONS REGULAR AND EVEN AT 16. CALL LIGHT IN REACH.
--- NOTE | 2018-09-26 03:00 | NUR ---
PATIENT WAS SLEEPING QUIETLY ON HER LEFT SIDE UNTIL AFTER, I WENT IN TO HANG THE 2AM IV. PATIENT AGAIN RESTING QUITLY AGAIN.
--- NOTE | 2018-09-26 05:57 | NUR ---
PATIENT HAS HAD FAIRLY GOOD RELIEF FROM NORCO. PAIN HAS NEVER GOTTEN ABOVE 5/10. SHE GOT 2 PO NORCO AT 2041 AND 2 NORCO AT 320. DRESSING TO LFA WAS CHANGED AFTER GIVING NORCO AT 2041 AND PAIN AFTER WORDS WAS STILL 5/10. PATIENT IS PRETTY INDEPENDENT IN THE ROOM. RESTIN QUIETLY RIGHT NOW, EYES CLOSED RESPIRATIONS EVEN AND REGULAR AT A RATE OF 16. IV CONTINUOUS AND WNL.
--- NOTE | 2018-09-26 06:03 | NUR ---
PATIENT HAS BEEN RESTING QUIETLY MOST OF THE EXCEPT FOR HIS FREQUENT EPISODES OF URINARY INCONTINENCE, WHICH AT TIMES HAS NEEDED A COMPLETE BED CHANGE. CURRENTLY PATIENT IS RESING QUIETLY, EYES CLOSED, RESPIRATIONS REGULAR AND EVEN AT 16 AT THIS TIME. LAB HAS ALREADY BEEN IN AND HE HAS REFUSED TO LET LAB DRAW HIS BLOOD TODAY. CHARGE NURSE JOSE IS GOING TO GO IN TO TRY AND TALK HIM INTO GETTING HIS BLOOD DRAWN. PATIENT'S IV FLUSHES WELL. CALL LIGHT IN REACH.
--- NOTE | 2018-09-26 06:17 | NUR ---
PATIENT HAS DENIED PAIN ALL NIGHT,HAS RESTED WITH EYES CLOSED, RESPIRATIONS REGULAR AND EVEN AT 16. USES CALL LIGHT APPROPRIATLY EXCEPT HE DID GET OUT OF BED ONCE AT THE BEGINING OF THE SHIFT AND PULLED OUT HIS IV. JONATHON AMARO PUT IN A NEW 22G AND IT IS WNL. PATIENT DID USE HI CALL LIGHT EVERY TIME HE NEEDED TO GET UP TO THE BATHROOM. RESTING RIGHT NOW,EYES CLOSED, RESPIRATIONS REGULAR AND EVEN.
--- NOTE | 2018-09-26 07:48 | NUR ---
BLOOD DRAWN FOR LAB FROM BROWN PORT ON LEFT IJ. LUMEN FLUSHED AND IVF RESUMED IN THIS PORT.
--- NOTE | 2018-09-26 09:06 | NUR ---
PATIENT IN BED, WARM WASHCLOTH OFFERED. BREAKFAST IN ROOM.
--- NOTE | 2018-09-26 09:31 | NUR ---
MORNING ASSESSMENT DONE. PATIENT UP TO CHAIR FOR BREAKFAST, DENIES PAIN AT THIS TIME. LINENS CHANGED. PLAN TO DO DRESSING CHANGE WHEN WILL BE ABLE TO SEE LEFT ARM WOUND.
--- NOTE | 2018-09-26 09:50 | NUR ---
DR. MCCLELLAND IN TO SEE PATIENT, LEFT ARM WOUND UNDRESSED.
--- NOTE | 2018-09-26 11:08 | NUR ---
LEFT FOREARM WOUND REDRESSED. COPIOUS AMOUNTS OF SEROSANGUIOUS DRAINAGE, STREAKED WITH PURULENT DISCHARGE NOTED AFTER PREVIOUS PACKING REMOVED. SMALL AMOUND OF IODOFORM PLACED IN WOUND, PATIENT DID NOT TOLERATE PROCEDURE WELL DESPITE MEDICATIONS. PACKING COVERED WITH NON-STICK PAD, GUAZE FLUFF, ABD PAD, KERLEX AND LOOSE COBAN. AWAITING WOUND CULTURE/BLOOD CULTURE FINAL RESULTS. PATIENT WILL LIKELY NEED OUTPATIENT DRESSING CHANGES.
--- NOTE | 2018-09-26 14:27 | NUR ---
PATIENT RESTING IN BED, LEFT ARM DRESSING CLEAN AND INTACT. IV VANCO INFUSING, PATIENT DENIES OTHER NEEDS.
--- NOTE | 2018-09-26 16:58 | NUR ---
PATIENT HAS CONTINUED ON VANCO TODAY, IS AD YEVGENIY IN ROOM, PAIN IS 4-5/10 AND IS WELL COVERED WITH P.O. NORCO. PATIENT DENIES NAUSEA, HAS A POOR APPETITE, WHICH SHE REPORTS IS HER USUAL. LEFT ARM REDRESSED, DR. MCCLELLAND VIEWED WOUND. WE ARE AWAITING FINAL WOUND CULTURES/BLOOD CULTURES TOMORROW AND PROBABLE OUTPATIENT DRESSING CHANGE PLANS.
--- NOTE | 2018-09-26 19:39 | NUR ---
PATIENT REPORT JUST GIVEN FOR PAIN BY JONATHON MI. PATIENT WATCHING TV IN BED. DRESSSING TO [facility] CDI.
--- NOTE | 2018-09-27 04:20 | NUR ---
PATIENT JUST RETURNED FROM THE RESTROOM INDEPENDENT. PATIENT HAVING 5/10 LEFT ARM PAIN AND 2 PO NORCO GIVEN. CALL LIGHT IN REACH. DRESSING CDI.
--- NOTE | 2018-09-27 05:25 | NUR ---
NIKOLAY HAS BEEN FDAIRLY INDEPENDENT IN THE ROOM. SHE HAS HAD 2 NORCO AT THE BEGINING OF SHIFT AND JUST A SHORT TIME AGAO AND THAT HAS CONTROLLED HER PAIN. IV IN THE LEFT JUGULAR STILL RUNNING CONTINUOUS AND THE OTHER 2 PORTS HAVE BEEN FLUSHED WITH 20MLS NS AND 5ML HEP FLUSH EACH AND FLUSHED EASILY. PATIENT HAS RESTED WELL MOST OF THE NIGHT, WITH EYES CLOSED RESPIRATIONS REGULAR AND EVEN [id number]. VS HAVE BEEN STABLE. PATIENT HAS KEPT LEFT ARM ELEVATED ON PILLOWS AND DRESSING CDI.
--- NOTE | 2018-09-27 06:07 | NUR ---
LABS DRAWN FROM LEFT JUGULAR CENTRAL LINE BROWN PORT AFTER 5ML WASTE, THEN FLUSHED WITH 20MLS NS AND NEW CLAVE PLACED AND FLUSHED WITH 5ML HEP FLUSH AND HOOKED BACK UP TO CONTINUOUS NS FLUIDS.
--- NOTE | 2018-09-27 07:35 | NUR ---
PATIENT RESTING IN BED. PATIENT'S BREAKFAST ORDERED.
--- NOTE | 2018-09-27 08:26 | NUR ---
THIS RN IN TO GIVE AM MEDICATIONS. PT STATES PAIN IS 4/10 IN HER FOREARM. PRN PAIN MEDICATION ADMINISTERED. IV INFUSING WELL. FRESH WATER PROVIDED. NO OTHER ISSUES AT THIS TIME. WILL CONTINUE TO CLOSELY MONITOR.
--- NOTE | 2018-09-27 08:50 | NUR ---
Report received from Erendira HOLT.
[2018-09-27] MEDS ORDERED: KEFLEX500 MG PO (09:19)
--- NOTE | 2018-09-27 09:48 | NUR ---
PT RESTING IN BED WITH HER LEFT ARM ELEVATED, THE DRESSING IS CDI AND THERE IS A TRACE EDEMA NOTED. THE LEFT WRIST PULSE IS STRONG AND CAP REFILL IS LESS THAN 2 SECONDS. THE PT STATES HER PAIN IS AT A 2 WHICH IS ACCEPTABLE TO HER. HER CALL LIGHT IS WITHIN REACH AND SHE DENIES ANY PROBLEMS AT THIS TIME.
--- NOTE | 2018-09-27 10:39 | NUR ---
Left wrist wound dressing changed as ordered, pt tolerated fair. The incision site noted to have a moderate amount of serious sang drainage. The wound appears healthy with defined edges with no noted redness around the edges. There is some noted wrist and forearm swelling which the pt states that it looks a little less.
--- NOTE | 2018-09-27 10:41 | NUR ---
PATIENT IN BED. RN IN ROOM. VITAL SIGNS AND I&O DONE. CALL LIGHT WITHIN REACH. NO OTHER NEEDS AT THIS TIME
[2018-09-27] MEDS ORDERED: NORCO 10-325 T1 EACH PO (10:53)
--- NOTE | 2018-09-27 11:05 | NUR ---
IJ removed per protocol at 1102. Pt laying flat in bed at this time, there is no signs of bleeding or swelling at the site at this time. Pt instucted to stay flat and to attmept to move her neck very little for 30 minutes which she states understanding. Site appears healthy and the tip was intact.
== END 2018-09-27 12:18 | disposition home or self-care (01) | DRG 603 ==
LOC: MS → ED 15:47 → MS 19:43 → EDSEX 19:43 → MS 19:43 → EDBD 19:43 → MS 09-27 12:18
PROVIDERS: ADMIT Internal Medicine
PROC: 05HY33Z Insertion of Infusion Device into Upper Vein, Percutaneous Approach (ICD-10-PCS; principal; 2018-09-23)
DX: L03.114 Cellulitis of left upper limb (principal); L02.414 Cutaneous abscess of left upper limb; F17.200 Nicotine dependence, unspecified, uncomplicated; J45.909 Unspecified asthma, uncomplicated; F19.11 Other psychoactive substance abuse, in remission; Z86.14 Personal history of Methicillin resistant Staphylococcus aureus infection; Z88.0 Allergy status to penicillin; Z79.891 Long term (current) use of opiate analgesic; Z79.899 Other long term (current) drug therapy
CPT/HCPCS: 36415; 71045; 80048; 80053; 80202; 85025; 85651; 87521; 87522; 90715; 96365; 96375; 99284-25; J1170; J1885; J3370; J7030; Q0163

== ENCOUNTER 2020-05-18 11:13 | Emergency (ER) | payer OTHER ==
[~2020-05-18] VITALS: Ht 167.6 cm; Wt 54.4 kg
[~2020-05-18 11:13] MED LIST changes: +KEFLEX500 MG PO; +NORCO 10-325 T1 EACH PO; +VENTOLIN HFA18 GM INH
--- OUTSIDE RECORDS SUMMARY | 2020-05-18 11:16 | XMS ---
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 Care History Medical/Surgical 09/24/2018 [facility] - PATIENT IS A YELLOWHAWK ELIGIBLE, \T\middot;\T\nbsp; PLEASE REFER PATIENT TO [facility] FOR NON EMERGENT MEDICAL NEEDS. \T\middot;\T\nbsp; [facility] CAN SEE PATIENTS SAME DAY FOR APTS IF PATIENT CALLS FIRST THING IN THE MORNING. E.D. VISIT COUNT (12 MO.) 2 [facility] TOTAL 2 NOTE: Visits indicate total known visits. ED/UCC VISIT TRACKING (12 MO.) 05/18/2020 11:14 [facility] [place] TYPE: Emergency COMPLAINT: - POSSIBLE OD 11/01/2019 07:22 [facility] [place] TYPE: Emergency COMPLAINT: - POSS ABSCESS ON LEFT ARM DIAGNOSES: - Cutaneous abscess of left upper limb - Allergy status to penicillin - Sepsis, unspecified organism - Personal history of nicotine dependence - Other intermodal customer service (current) drug therapy - Cutaneous abscess of left upper limb - Allergy status to other antibiotic agents status INPATIENT VISIT TRACKING (12 MO.) 11/01/2019 17:05 [facility] TYPE: Surgical Services DIAGNOSES: - Severe sepsis with septic shock - ST elevation (STEMI) myocardial infarction involving other co - Sepsis, unspecified organism - septic shock - Cutaneous abscess of limb, unspecified [email or web address]
[2020-05-18] MEDS ORDERED: BUPRENORPHINE HC8 MG SL (11:26)
--- NOTE | 2020-05-19 06:40 | EKG ---
[facility] [address] [place], [place] [address] Signed Normal sinus rhythm with sinus arrhythmia Normal ECG No previous ECGs available Confirmed by HIEN WEBSTER MD ([id number]) on 05/19/2020 6:39:51 AM Electronically Signed By: HIEN WEBSTER MD 05/19/20 0640 PATIENT NAME: CYNTHIA WRIGHT Electrocardiogram DATE OF : [birth year] PHYSICIAN: HIEN WEBSTER MD REPORT #: [id number] REPORT IS CONFIDENTIAL AND NOT TO BE RELEASED WITHOUT AUTHORIZATION
== END 2020-05-18 13:27 | disposition home or self-care (01) ==
LOC: ED 11:13
DX: T40.411A Poisoning by fentanyl or fentanyl analogs, accidental (unintentional), initial encounter (principal); F17.200 Nicotine dependence, unspecified, uncomplicated; Z88.0 Allergy status to penicillin; Z79.899 Other long term (current) drug therapy
CPT/HCPCS: 80053; 80176; 84443; 85025; 93005; 93010; 99284-25; G0480

== ENCOUNTER 2020-11-22 07:36 | Emergency (ER) | payer OTHER ==
[~2020-11-22] VITALS: Ht 167.6 cm; Wt 54.4 kg
[~2020-11-22 07:36] MED LIST changes: +BUPRENORPHINE HC8 MG SL
--- OUTSIDE RECORDS SUMMARY | 2020-11-22 07:42 | XMS ---
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 - Has Care Guidelines CARE PROVIDERS JUAN DUARTE Registered Nurse: [facility] 09/24/2018-[facility] PHONE: [phone] [facility] 11/04/2019-[facility] PHONE: [phone] Braulio has no Care Guidelines for this patient. Care History Medical/Surgical 09/24/2018 [facility] - PATIENT IS A YELLOWHAWK ELIGIBLE, \T\middot;\T\nbsp; PLEASE REFER PATIENT TO [facility] FOR NON EMERGENT MEDICAL NEEDS. \T\middot;\T\nbsp; [facility] CAN SEE PATIENTS SAME DAY FOR APTS IF PATIENT CALLS FIRST THING IN THE MORNING. E.D. VISIT COUNT (12 MO.) 2 [facility] Keen TOTAL 2 NOTE: Visits indicate total known visits. ED/UCC VISIT TRACKING (12 MO.) 11/22/2020 07:37 [facility] TYPE: Emergency COMPLAINT: - SWOLLEN EYE LID 05/18/2020 11:14 [facility] TYPE: Emergency COMPLAINT: - POSSIBLE OD DIAGNOSES: - POISONING BY FENTANYL OR FENTANYL ANALOGS, ACCIDENTAL, INIT - POISONING BY FENTANYL OR FENTANYL ANALOGS, ACCIDEN - Poisoning by heroin, accidental (unintentional), initial encounter - Poisoning by fentanyl or fentanyl analogs, accidental (unintentional), initial encounter - Other terminologist (current) drug therapy - Allergy status to penicillin - Nicotine dependence, unspecified, uncomplicated INPATIENT VISIT TRACKING (12 MO.) No inpatient visits to display in this time frame [email or web address]
[2020-11-22] MEDS ORDERED: METHADONE HCL50 GM PO (07:51)
[2020-11-22] MEDS ORDERED: CEFDINIR300 MG PO (08:05)
[2020-11-22] MEDS ORDERED: CLEOCIN HCL300 MG PO (08:05)
== END 2020-11-22 08:10 | disposition home or self-care (01) ==
LOC: ED 07:36
DX: L03.213 Periorbital cellulitis (principal); F17.200 Nicotine dependence, unspecified, uncomplicated; Z88.0 Allergy status to penicillin
CPT/HCPCS: 99283

== ENCOUNTER → 2021-06-04 | Emergency (ER) | payer OTHER ==
[~2021-06-04] VITALS: Ht 167.6 cm; Wt 59.0 kg
[~2021-06-04] MED LIST changes: +CEFDINIR300 MG PO; +METHADONE HCL50 GM PO; +ONDANSETRON ODT8 MG PO
== END ==
LOC: ED 16:31
DX: F11.23 Opioid dependence with withdrawal (principal); F10.239 Alcohol dependence with withdrawal, unspecified; F15.23 Other stimulant dependence with withdrawal; F17.200 Nicotine dependence, unspecified, uncomplicated; Z88.0 Allergy status to penicillin; Z79.899 Other long term (current) drug therapy
CPT/HCPCS: 99284

== ENCOUNTER 2021-07-14 12:46 | Inpatient (IN) | payer OTHER ==
[~2021-07-14] VITALS: Ht 167.6 cm; Wt 57.8 kg
[2021-07-15] MEDS ORDERED: NICOTINE LOZENGE4 MG BUCCAL (10:36)
[2021-07-15] MEDS ORDERED: ONDANSETRON ODT4 MG PO (10:37)
--- NOTE | 2021-07-17 17:26 | EKG ---
[facility] [address] [place] [address] Signed Normal sinus rhythm Possible Left atrial enlargement Borderline ECG When compared with ECG of 18-MAY-2020 11:48, T wave inversion now evident in Anterior leads Confirmed by DELANO MCCLELLAND DO ([id number]) on 07/17/2021 5:26:01 PM Electronically Signed By: DELANO MCCLELLAND DO 07/17/21 1726 PATIENT NAME: QUINTON JONESCYNTHIA CRAMERE Electrocardiogram DATE OF : [birth year] PHYSICIAN: DELANO MCCLELLAND DO REPORT #: [id number] REPORT IS CONFIDENTIAL AND NOT TO BE RELEASED WITHOUT AUTHORIZATION
== END 2021-07-15 11:00 | disposition home or self-care (01) | DRG 683 ==
LOC: ED 12:46 → MS 17:59
PROVIDERS: ADMIT Internal Medicine; ATTEND Internal Medicine
DX: N17.9 Acute kidney failure, unspecified (principal); F11.23 Opioid dependence with withdrawal; E87.1 Hypo-osmolality and hyponatremia; I24.8 Other forms of acute ischemic heart disease; Z20.822 Contact with and (suspected) exposure to COVID-19; R11.2 Nausea with vomiting, unspecified; E86.0 Dehydration; F17.210 Nicotine dependence, cigarettes, uncomplicated; Z71.6 Tobacco abuse counseling; Z88.0 Allergy status to penicillin; I25.2 Old myocardial infarction; M41.9 Scoliosis, unspecified; Z86.14 Personal history of Methicillin resistant Staphylococcus aureus infection; Z87.81 Personal history of (healed) traumatic fracture
CPT/HCPCS: 80048; 83690; 83735; 84484; 84703; 85025; 93005; 93010; 96374; 99285-25; 99406; J1650; J1790; J2405; J3480; J7030; J7121; Q0177; U0003